=== PATIENT | female | born 1990 | race Two or more races ===

== ENCOUNTER → 2017-02-27 | Outpatient (CLI) | payer OTHER ==
[~2017-02-27] MED LIST: Z.0.NO CURRENT MEDS
== END ==
LOC: HPND 10:54
DX: O42.919 Preterm premature rupture of membranes, unspecified as to length of time between rupture and onset of labor, unspecified trimester (principal)
CPT/HCPCS: 76811; 76817

== ENCOUNTER → 2017-03-13 | Outpatient (CLI) | payer OTHER | LOC: HPND 13:06 | DX: O09.292 Supervision of pregnancy with other poor reproductive or obstetric history, second trimester (principal); O35.8XX0 Maternal care for other (suspected) fetal abnormality and damage, not applicable or unspecified | CPT/HCPCS: 76815; 76817 ==

== ENCOUNTER → 2017-03-27 | Outpatient (CLI) | payer OTHER | LOC: HPND 12:41 | DX: O09.292 Supervision of pregnancy with other poor reproductive or obstetric history, second trimester (principal); O35.8XX0 Maternal care for other (suspected) fetal abnormality and damage, not applicable or unspecified | CPT/HCPCS: 76816; 76817 ==

== ENCOUNTER → 2017-04-23 | Outpatient (CLI) | payer OTHER | LOC: HPND 12:57 | DX: O09.292 Supervision of pregnancy with other poor reproductive or obstetric history, second trimester (principal) | CPT/HCPCS: 76816 ==

== ENCOUNTER → 2017-05-25 | Outpatient (CLI) | payer OTHER | LOC: HPND 08:09 | DX: O09.213 Supervision of pregnancy with history of pre-term labor, third trimester (principal); O35.1XX0 Maternal care for (suspected) chromosomal abnormality in fetus, not applicable or unspecified | CPT/HCPCS: 76816 ==

== ENCOUNTER 2017-06-10 00:01 | Emergency (ER) | payer OTHER ==
--- NOTE | 2017-06-10 00:57 | PD ---
HPI Chief Complaint Contractions Date Seen: Jun 10, 2017 Time Seen: 00:51 Travel History International Travel<30 Days: No Contact w/Intl Traveler<30Days: No Known Affected Area: No History of Present Illness HPI 26-year-old at 35 weeks and 5 days comes in complaining of contractions for about 24 hours. Patient states that about a day and half ago she started having intermittent mild contractions have continued and she is here just to make sure that she is not in labor. Patient has had a history of a demise at 23 weeks due to premature rupture membranes with a prolapsed cord. On her last ultrasound the baby was in a transverse presentation. She sees a Dr. Lewis in [place] who delivers at the [facility] but the patient is planning on delivering here as she lives in [place]. Patient denies any complications during this . Patient is due to get her group B strep culture next week. Patient had 2 ultrasounds here due to the history of the demise and the premature rupture membranes and due to bilateral renal pyelectasis which has since resolved Para: 2 : 4 Miscarriage: 2 History Past Medical History Medical History: Denies Significant Hx Obstetric History Obstetric History Spontaneous vaginal delivery 21 was 7 pounds the other one was 8 pounds Premature rupture membranes at 23 weeks with a demise due to prolapsed cord Past Surgical History Surgical History: No Previous Surgery Family History Family History: Negative Social History Alcohol Use: No Tobacco Use: No Substance Abuse: No Allergies-Medications (Allergen,Severity, Reaction): Coded Allergies: No Known Allergies (Verified Allergy, Mild, 11/24/07) Home Meds Reported Medications Miscellaneous (No Current Meds) [facility] Ref 0 11/24/07 Miscellaneous (No Current Meds) [facility] 09/02/06 Review of Systems Except as stated in HPI: all other systems reviewed are Neg Physical Exam Narrative GENERAL: Well-nourished, well-developed patient. SKIN: Warm and dry. HEAD: Normocephalic and atraumatic. EYES: No scleral icterus. No injection or drainage. ENT: No nasal drainage noted. Mucous membranes pink. Airway patent. NECK: Supple, trachea midline. No JVD. CARDIOVASCULAR: Regular rate and rhythm without murmurs, gallops, or rubs. RESPIRATORY: Breath sounds equal bilaterally. No accessory muscle use. ABDOMEN/GI: Abdomen soft, non-tender, bowel sounds present, no rebound, no guarding Gravid to [-35] weeks size Fundal Height: [-] GENITOURINARY: External Genitalia: intact and normal in appearance BUS glands: [Normal-] Cervix: [Posterior-] Dilatation: [-Closed] Effacement: [-Long] Station: [-High] Presentation: [-Vertex] Membranes: [intact ] Uterine Contractions: [-Absent] mild palpable contractions on exam Urine dip negative for leukocytes and nitrates, protein FHT's: Category: [1-] Baseline: [-145] Reactive: [Moderate-] Variability: [Moderate-] Decels: [-Absent] EXTREMITIES: No cyanosis or edema. BACK: Nontender without obvious deformity. No CVA tenderness. NEUROLOGICAL: Awake and alert. Motor and sensory grossly within normal limits. Five out of 5 muscle strength in all muscle groups. Normal speech. Data Data Vital Signs Reviewed: Yes MDM Plan 26-year-old at 35 weeks and 5 days with irregular mild contractions not in labor Discussed with the patient either transfer of records to [facility] so we can have her labs and her group B strep or consider transfer of care to a doctor who delivers in this hospital History of demise at 23 weeks Diagnosis Diagnosis: Primary Impression: 35 weeks gestation of Additional Impressions: Irregular uterine contractions False labor before 37 completed weeks of gestation during in third trimester, antepartum Disposition: DISCHARGE HOME Zully Lerma MD Jun 10, 2017 00:57
[2017-06-10] MEDS ORDERED: OXYTOCIN 30 UNITS-500ML PREMIX 500 ML ONE (02:06)
[2017-06-12] MEDS ORDERED: PREN1TAB58 (11:30)
== END 2017-06-10 02:37 | disposition home or self-care (01) ==
LOC: HOBED 00:01
DX: O47.03 False labor before 37 completed weeks of gestation, third trimester (principal); Z3A.35 35 weeks gestation of pregnancy
CPT/HCPCS: 99283; J2590

== ENCOUNTER 2017-06-17 14:15 | Emergency (ER) | payer OTHER ==
[~2017-06-17] VITALS: Ht 152.4 cm; Wt 65.3 kg
[~2017-06-17 14:15] MED LIST changes: +PREN1TAB58; -Z.0.NO CURRENT MEDS
--- NOTE | 2017-06-17 16:02 | PD ---
HPI Chief Complaint ctx, dark spotting Travel History International Travel<30 Days: No Contact w/Intl Traveler<30Days: No Known Affected Area: No History of Present Illness HPI 26y/o , IUP at 36.5 records reviewed, PNC complicated by: FDIU at 23w, transfer of care at 35w Patient presents c/o onset of painful ctx a week ago, occurring about every 10 min. She reports the ctx worsened in intensity today. There have been no aggravating or alleviating factors and no attempted treatments. She reports she was seen in the office on Sunday for a SVE (06/12) and started having dark brown spotting on Sunday (06/13). She states her cervix was closed at that time. She reports it was just small amount with wiping. The patient reports the spotting stopped yesterday (06/16). She denies any BRB or vaginal bleeding. She reports good FM. She denies any LOF. She has no other ob complaints. Para: 2 : 4 History Past Medical History Medical History: Denies Significant Hx Obstetric History Obstetric History FDIU at 23w FT 2005, 2007 Past Surgical History Narrative Surgical Eye surgery Family History Family History: Negative Social History Alcohol Use: No Tobacco Use: No Substance Abuse: No Allergies-Medications (Allergen,Severity, Reaction): Coded Allergies: No Known Allergies (Verified , 06/17/17) Home Meds Reported Medications Vit/Iron Fumarate/FA ( Vitamin Formula Tb)1 Each Tablet 06/12/17 Review of Systems Except as stated in HPI: all other systems reviewed are Neg Physical Exam Narrative VSS AF, A&Ox3, NAD GENERAL: Well-nourished, well-developed patient. SKIN: Warm and dry. HEAD: Normocephalic and atraumatic. EYES: No scleral icterus. No injection or drainage. ENT: No nasal drainage noted. Mucous membranes pink. Airway patent. NECK: Supple, trachea midline. No JVD. CARDIOVASCULAR: Regular rate and rhythm without murmurs, gallops, or rubs. RESPIRATORY: Breath sounds equal bilaterally. No accessory muscle use. BREASTS: deferred ABDOMEN/GI: Abdomen soft, non-tender, bowel sounds present, no rebound, no guarding Gravid GENITOURINARY: External Genitalia: intact and normal in appearance BUS glands: normal Cervix: visibly normal/closed, no cervical/vaginal masses, normal rugae, physiologic d/c, no blood or dark d/c noted Dilatation: 1 Effacement: thick, multiparous Station: -3 Presentation: cephalic, posterior Membranes: [intact] Exam unchagned in 1h Uterine Contractions: [decreased with po hydration] FHT's: Category: [1] Baseline: 140s Reactive: reactive NST Variability: [moderate LTV, good accels] Decels: [no] EXTREMITIES: No cyanosis or edema. BACK: Nontender without obvious deformity. No CVA tenderness. NEUROLOGICAL: Awake and alert. Motor and sensory grossly within normal limits. Five out of 5 muscle strength in all muscle groups. Normal speech MS: grossly normal ROM, gait, muscle strength Psych: grossly normal memory, affect. Data Data Orders Hydroxyzine Pamoate (Vistaril) (06/17/17 16:00) MDM Plan A/P: 26y/o 1. IUP at 36.5 2. Threatened PTL: no evidence of PTL with cervix unchanged over observation period and patient reports ctx have decreased in intensity and frequency with po hydration. Strict PTL precautions, encourage good hydration. 3. wellbeing: reassuring testing with reactive NST. FHR reassuring and appropriate for gestational age. FKC daily. 4. h/o FDIU at 23w 5. No evidence of VB, discussed that spotting can be normal after vaginal exam, no evidence of old bleeding on exam. Bleeding precautions. 6. F/u with primary Ob in 1d as scheduled or sooner if needed 7. A+. Diagnosis Diagnosis: Primary Impression: 36 weeks gestation of Additional Impression: False labor before 37 completed weeks of gestation during in third trimester, antepartum Disposition: 01 DISCHARGE HOME Condition: Critical Patient Instructions: Movement (ED), Labor (ED) Additional Instructions: F/U with primary OB in 1d as scheduled PTL precautions, FKC daily, VB precautions Zeynep Zaragoza MD Jun 17, 2017 16:02
[2017-08-13] MEDS ORDERED: SPRI28TA PO (16:11)
== END 2017-06-17 17:55 | disposition home or self-care (01) ==
LOC: HOBED 14:15
DX: O47.03 False labor before 37 completed weeks of gestation, third trimester (principal); Z3A.36 36 weeks gestation of pregnancy
CPT/HCPCS: 59025; 99283

== ENCOUNTER 2017-06-23 11:20 | Emergency (ER) | payer OTHER ==
[2017-06-23 11:40] VITALS: TEMP 97.7
--- NOTE | 2017-06-23 12:06 | PD ---
HPI Chief Complaint conTraction pain, decreased movement .,spotting Date Seen: Jun 23, 2017 Travel History International Travel<30 Days: No Contact w/Intl Traveler<30Days: No Known Affected Area: No History of Present Illness HPI 26-year-old G 5 P4 38 weeks to [facility] presents complaining contractions, no bleeding but did note some minimal spotting, no leakage of fluid. Baby is active here on OB ED in the heart rate tracing is reactive. Patient elías every 8-10 minutes Para: 4 : 5 History Obstetric History Obstetric History 4 vaginal deliveries Social History Alcohol Use: No Tobacco Use: No Substance Abuse: No Allergies-Medications (Allergen,Severity, Reaction): Coded Allergies: No Known Allergies (Verified , 06/18/17) Home Meds Reported Medications Vit/Iron Fumarate/FA ( Vitamin Formula Tb)1 Each Tablet 06/12/17 Review of Systems General / Constitutional: No: Fever, Weight Gain, Chills, Other Eyes: No: Diploplia, Blurred Vision, Visual changes, Pain, Photophobia HENT: No: Headaches, Vertigo, Lightheadedness Cardiovascular: No: Irregular Rhythm, Chest Pain or Discomfort, Palpitations, Tachycardia, Syncope, Varicosities, Edema, Cyanosis Respiratory: No: Cough, Short of Breath, Other Gastrointestinal: Abdominal Pain, No: Nausea, Vomiting, Diarrhea Genitourinary: No: Decreased Urinary Output, Oliguria Musculoskeletal: No: Limited ROM, Weakness, Cramping, Edema, Pain Skin: No Rash, No Itching, No Dryness, No Lumps, No Change in Pigmentation, No Change in Nails, No Alopecia, No Lesions Neurologic: No: Weakness, Dizziness, Syncope, Focal Abnormalities, Coordination Problem, Headache, Slurred Speech, Seizures Psychiatric: No: Depression, Suicidal Ideations, Homicidal Ideation Endocrine: No: Heat Intolerance, Cold Intolerance, Polydipsia, Polyuria, Other Physical Exam Vital Signs Date Time Temp Pulse Resp B/P Pulse Ox O2 Delivery O2 Flow Rate FiO2 06/23/17 11:40 97.7 Narrative GENERAL: Well-nourished, well-developed patient. SKIN: Warm and dry. HEAD: Normocephalic and atraumatic. EYES: No scleral icterus. No injection or drainage. ENT: No nasal drainage noted. Mucous membranes pink. Airway patent. NECK: Supple, trachea midline. No JVD. CARDIOVASCULAR: Regular rate and rhythm without murmurs, gallops, or rubs. RESPIRATORY: Breath sounds equal bilaterally. No accessory muscle use. BREASTS: Bilateral exam showed no masses , no retractions, no nipple discharge. ABDOMEN/GI: Abdomen soft, non-tender, bowel sounds present, no rebound, no guarding Gravid to [38-] weeks size Fundal Height: [-38] GENITOURINARY: External Genitalia: intact and normal in appearance BUS glands: [-] Cervix: [-] Dilatation: [-2] Effacement: [-30] Station: [-3] Presentation: [vtx-] Membranes: [intact ] Uterine Contractions: [q 8 min-] FHT's: Category: [-1] Baseline: [-133] Reactive: [-yes] Variability: mod[-] Decels: [-none] EXTREMITIES: No cyanosis or edema. BACK: Nontender without obvious deformity. No CVA tenderness. NEUROLOGICAL: Awake and alert. Motor and sensory grossly within normal limits. Five out of 5 muscle strength in all muscle groups. Normal speech. MDM Interpretation(s) Patient 26-year-old 38 weeks and goes to [facility] presents complaining of contractions, decreased movement, and minimal spotting. No leakage of fluid or gross vaginal bleeding. Baby is active here on OB ED and heart rate tracing is reactive. She is elías every 8-10 minutes, cervix is 2 cm thick and posterior vertex Plan Plan to discharge home to return for increasing pain, or ruptured membranes, or significant vaginal bleeding. Diagnosis Diagnosis: Primary Impression: 38 weeks gestation of Additional Impression: Irregular uterine contractions Disposition: 01 DISCHARGE HOME Condition: Stable Ray Santiago II, MD Jun 23, 2017 12:06
[2017-08-13] MEDS ORDERED: SPRI28TA PO (16:11)
== END 2017-06-23 12:49 | disposition home or self-care (01) ==
LOC: HOBED 11:20
DX: O47.1 False labor at or after 37 completed weeks of gestation (principal); Z3A.38 38 weeks gestation of pregnancy
CPT/HCPCS: 59025

== ENCOUNTER 2017-06-27 10:57 | Inpatient (IN) | payer OTHER ==
[2017-06-27] VITALS (36 sets, daily range): BP systolic 89–132; BP diastolic 55–98; PULSE 50–91; RESP 18; TEMP 97.9–98.3
[~2017-06-27] VITALS: Ht 152.4 cm; Wt 64.4 kg
--- NOTE | 2017-06-27 11:27 | PD ---
HPI Chief Complaint Contractions Date Seen: Jun 27, 2017 Travel History International Travel<30 Days: No Contact w/Intl Traveler<30Days: No History of Present Illness HPI Patient is a 26 year old at 38-1/7 weeks gestation who presents today for contractions. She has been having contractions for the past 2 weeks, however last night they became more frequent. They're now occurring every 5 minutes. She has noticed more mucus discharge but denies any vaginal bleeding, gush or leaking of fluid. Positive movement. care with [facility]. History Past Medical History Medical History: Denies Significant Hx Obstetric History Obstetric History x 2 at term IUFD at 23 weeks gestation Past Surgical History Surgical History: No Previous Surgery Family History Family History: Negative Social History Alcohol Use: No Tobacco Use: No Substance Abuse: No Allergies-Medications (Allergen,Severity, Reaction): Coded Allergies: No Known Allergies (Verified , 06/26/17) Home Meds Reported Medications Vit/Iron Fumarate/FA ( Vitamin Formula Tb)1 Each Tablet 06/12/17 Review of Systems Except as stated in HPI: all other systems reviewed are Neg General / Constitutional: No: Fever, Chills Eyes: No: Blurred Vision, Visual changes HENT: No: Headaches Cardiovascular: No: Chest Pain or Discomfort Respiratory: No: Short of Breath Gastrointestinal: No: Nausea, Vomiting Genitourinary: Pelvic Pain, Discharge, No: Dysuria, Vaginal Bleeding Musculoskeletal: No: Edema Neurologic: No: Headache Psychiatric: No: Substance Abuse Physical Exam Narrative GENERAL: Well-nourished, well-developed patient. SKIN: Warm and dry. HEAD: Normocephalic and atraumatic. EYES: No scleral icterus. No injection or drainage. ENT: No nasal drainage noted. Mucous membranes pink. Airway patent. NECK: Supple, trachea midline. No JVD. CARDIOVASCULAR: Regular rate and rhythm without murmurs, gallops, or rubs. RESPIRATORY: Breath sounds equal bilaterally. No accessory muscle use. ABDOMEN/GI: Abdomen soft, non-tender, bowel sounds present, no rebound, no guarding Gravid to 38 weeks size GENITOURINARY: External Genitalia: intact and normal in appearance BUS glands: normal Cervix: posterior Dilatation: 2-3 Effacement: 30 Station: -2 Presentation: vertex Membranes: intact Uterine Contractions: irregular FHT's: Category: I Baseline: 135 Reactive: + Variability: moderate Decels: none EXTREMITIES: No cyanosis or edema. BACK: Nontender without obvious deformity. No CVA tenderness. NEUROLOGICAL: Awake and alert. Motor and sensory grossly within normal limits. Normal speech. Data Data Vital Signs Reviewed: Yes MDM Medical Record Reviewed: Yes Narrative Course / MDM 26 year old at 38-1/7 weeks gestation. 1. IUP- Category I tracing, reassuring. 2. Contractions- q2-3 minutes. Will have patient ambulate around the floor and monitor for cervical change. Declines pain medication. sdw Lucy Beckford MD, R3 Jun 27, 2017 11:27 False labor Additional Impression: 38 weeks gestation of Disposition: DISCHARGE HOME Condition: Stable Lucy Del Rosario MD, R3 Jun 27, 2017 11:27
[2017-06-27] MEDS ORDERED: LACTATED RINGER'S 1000 ML INJ 1,000 ML IV SCH (14:02)
[2017-06-27] MEDS ORDERED: LACTATED RINGER'S 1000 ML INJ 1,000 ML IV PRN (14:02)
--- NOTE | 2017-06-27 14:10 | HHI.HP ---
History & Physical H&P HPI Chief Complaint Contractions Date Seen: Jun 27, 2017 Travel History International Travel<30 Days: No Contact w/Intl Traveler<30Days: No History of Present Illness HPI Patient is a 26 year old at 38-1/7 weeks gestation who presents today for contractions. She has been having contractions for the past 2 weeks, however last night they became more frequent. They're now occurring every 5 minutes. She has noticed more mucus discharge but denies any vaginal bleeding, gush or leaking of fluid. Positive movement. care with [facility]. History Past Medical History Medical History: Denies Significant Hx Obstetric History Obstetric History x 2 at term IUFD at 23 weeks gestation Past Surgical History Surgical History: No Previous Surgery Family History Family History: Negative Social History Alcohol Use: No Tobacco Use: No Substance Abuse: No Allergies-Medications (Allergen,Severity, Reaction): Coded Allergies: No Known Allergies (Verified , 06/26/17) Home Meds Reported Medications Vit/Iron Fumarate/FA ( Vitamin Formula Tb)1 Each Tablet 06/12/17 Review of Systems Except as stated in HPI: all other systems reviewed are Neg General / Constitutional: No: Fever, Chills Eyes: No: Blurred Vision, Visual changes HENT: No: Headaches Cardiovascular: No: Chest Pain or Discomfort Respiratory: No: Short of Breath Gastrointestinal: No: Nausea, Vomiting Genitourinary: Pelvic Pain, Discharge, No: Dysuria, Vaginal Bleeding Musculoskeletal: No: Edema Neurologic: No: Headache Psychiatric: No: Substance Abuse Physical Exam Narrative GENERAL: Well-nourished, well-developed patient. SKIN: Warm and dry. HEAD: Normocephalic and atraumatic. EYES: No scleral icterus. No injection or drainage. ENT: No nasal drainage noted. Mucous membranes pink. Airway patent. NECK: Supple, trachea midline. No JVD. CARDIOVASCULAR: Regular rate and rhythm without murmurs, gallops, or rubs. RESPIRATORY: Breath sounds equal bilaterally. No accessory muscle use. ABDOMEN/GI: Abdomen soft, non-tender, bowel sounds present, no rebound, no guarding Gravid to 38 weeks size GENITOURINARY: External Genitalia: intact and normal in appearance BUS glands: normal Cervix: posterior Dilatation: 2-3 Effacement: 30 Station: -2 Presentation: vertex Membranes: intact Uterine Contractions: irregular FHT's: Category: I Baseline: 135 Reactive: + Variability: moderate Decels: none EXTREMITIES: No cyanosis or edema. BACK: Nontender without obvious deformity. No CVA tenderness. NEUROLOGICAL: Awake and alert. Motor and sensory grossly within normal limits. Normal speech. Data Data Vital Signs Reviewed: Yes MDM Medical Record Reviewed: Yes Narrative Course / MDM 26 year old at 38-1/7 weeks gestation. 1. IUP- Category I tracing, reassuring. 2. Regular contractions- admit for labor 3. GBS negative. sdw Lucy Beckford MD, R3 Jun 27, 2017 14:10
[2017-06-27] MEDS ORDERED: LIDOCAINE HCL 1% 50 ML VIAL I-DERMAL PRN (14:15)
[2017-06-27] MEDS ORDERED: LIDOCAINE HCL 1% 50 ML VIAL INFIL PRN (14:15)
[2017-06-27] MEDS ORDERED: CITRIC ACID-SODIUM CITRATE LIQ 30 ML UDC PO SCH (14:15)
[2017-06-27] MEDS ORDERED: ONDANSETRON HCL 4 MG/2 ML VIAL IV PRN (14:15)
[2017-06-27] MEDS ORDERED: SODIUM CHLORID 0.9% 500 ML INJ 500 ML IV PRN (14:15)
[2017-06-27] MEDS ORDERED: MINERAL OIL 10 ML VIAL TOPICAL PRN (14:15)
[2017-06-27] MEDS ORDERED: OXYTOCIN 30 UNITS-500ML PREMIX 500 ML IV ONE (14:15)
[2017-06-27] MEDS ORDERED: SODIUM CHLOR 0.9% 1000 ML INJ 1,000 ML IV PRN (14:22)
[2017-06-27 15:32] LABS: BASOPHIL % 0.4 % (0.0-2.0); EOSINOPHIL % 0.5 % (0.0-4.0); HEMATOCRIT 36.5 % (35.0-46.0); HEMO FLAGS DIFF FINAL; LYMPHOCYTE # 1.6 TH/MM3 (1.0-4.8); MEAN CELL VOLUME 88.9 FL (80.0-100.0); MEAN CORPUSCULAR HEMOGLOBIN 30.3 PG (27.0-34.0); MEAN CORPUSCULAR HGB CONC 34.1 % (32.0-36.0); MONO % 5.9 % (0.0-8.0); NEUT % 76.2 % (16.0-70.0); PLATELET COUNT 156 TH/MM3 (150-450); RED CELL DISTRIBUTION WIDTH 14.5 % (11.6-17.2); WHITE BLOOD COUNT 9.2 TH/MM3 (4.0-11.0)
[2017-06-27 16:00] LABS: BACTERIA, URINE RARE /hpf; BLOOD, URINE TRACE (NEG); CALCIUM OXALATE CRYSTALS,URINE OCC /hpf; COMMENT (UR) CULT NOT INDICATED; CULTURE IF INDICATED CULT NOT INDICATED; GLUCOSE,URINE NEG (NEG); KETONE, URINE NEG (NEG); MUCUS URINE FEW /lpf (OCC); NITRITE,URINE NEG (NEG); SQUAMOUS EPITHELIAL CELL URINE 11 /hpf (0-5); URINE COLOR YELLOW (YELLW/STRAW)
[2017-06-27] MEDS ORDERED: OXYTOCIN 30 UNITS-500ML PREMIX 500 ML IV SCH (22:15)
[2017-06-28] VITALS (24 sets, daily range): BP systolic 100–150; BP diastolic 53–82; PULSE 54–78; RESP 16–18; TEMP 97.9–98.2; O2SAT 100
[2017-06-28] MEDS ORDERED: WITCH HAZEL 50%/GLYCERIN 12.5% 40 PAD JAR TOPICAL PRN (03:15)
[2017-06-28] MEDS ORDERED: SODIUM CHLORIDE 0.9% FLUSH 10 ML FLUSH IV FLUSH PRN (03:15)
[2017-06-28] MEDS ORDERED: ALUMINUM/MAGNESIUM/SIMETH 30 ML CUP PO PRN (03:15)
[2017-06-28] MEDS ORDERED: ONDANSETRON ODT 4 MG TAB PO PRN (03:15)
[2017-06-28] MEDS ORDERED: oxyCODONE/ACETAMINOPHEN 5 MG/325 MG TAB PO PRN (03:15)
[2017-06-28] MEDS ORDERED: ZOLPIDEM TARTRATE 5 MG TAB PO PRN (03:15)
[2017-06-28] MEDS ORDERED: BENZOCAINE 20% TOPICAL SPRAY 60 ML CAN TOPICAL PRN (03:15)
[2017-06-28] MEDS ORDERED: OXYTOCIN 30 UNITS-500ML PREMIX 500 ML IV SCH (03:15)
--- NOTE | 2017-06-28 03:17 | PD.OB.DELI ---
Delivery Date: Jun 28, 2017 Anesthesia: None Episiotomy: None Vaginal Delivery: Normal Presentation: Occiput anterior Nuchal Cord: None Delayed cord clamping (45 sec): No Infant: Female One Minute : 9 Five Minute : 9 Weight: 3115 Placenta: Spontaneous delivery Laceration: No lacerations Additional Information Time of delivery 0305 No lacerations Assisted by Víctor Butterfield MD, R3 Jun 28, 2017 03:17
[2017-06-28] MEDS ORDERED: SODIUM CHLORIDE 0.9% FLUSH 10 ML FLUSH IV FLUSH SCH (09:00)
--- NOTE | 2017-06-28 10:26 | HHI.OB ---
Subjective Post Day: 0 Remarks day # 0 AFVSS overnight. Decreased lochia. Denies dysuria. No breast tenderness. She is feeding the baby via bottle. Appetite good. No nausea or vomiting. Ambulating well. Denies calf pain or shortness of breath. Otherwise, she is doing well this morning and has no other complaints. Objective Vitals/I&O Vital Signs Date Time Temp Pulse Resp B/P Pulse Ox O2 Delivery O2 Flow Rate FiO2 06/28/17 08:00 60 16 102/60 06/28/17 08:00 98.0 06/28/17 04:38 18 06/28/17 04:30 54 107/55 06/28/17 04:15 56 103/57 06/28/17 04:01 18 06/28/17 04:00 55 115/69 06/28/17 03:59 18 06/28/17 03:45 59 105/62 06/28/17 03:45 18 06/28/17 03:31 66 105/61 06/28/17 03:30 18 06/28/17 03:19 76 150/70 06/28/17 03:15 98.2 06/28/17 03:15 18 06/28/17 03:02 74 122/78 06/28/17 02:31 71 135/82 06/28/17 02:01 61 125/65 06/28/17 01:45 18 06/28/17 01:31 73 137/72 06/28/17 01:15 18 06/28/17 01:00 54 137/77 06/28/17 00:45 18 06/28/17 00:31 78 100/53 06/28/17 00:15 18 06/28/17 00:15 18 06/28/17 00:00 70 108/72 06/28/17 00:00 70 108/72 06/27/17 23:30 60 101/68 06/27/17 23:15 97.9 18 06/27/17 23:00 60 89/55 06/27/17 22:45 18 06/27/17 22:30 74 111/68 06/27/17 22:23 63 111/66 06/27/17 20:07 18 06/27/17 20:07 97.9 06/27/17 20:04 61 129/81 06/27/17 18:30 98.3 18 06/27/17 18:30 58 123/83 06/27/17 17:11 50 132/71 06/27/17 17:10 18 06/27/17 17:05 65 06/27/17 17:00 64 06/27/17 16:55 62 06/27/17 16:50 75 06/27/17 16:45 55 06/27/17 16:40 62 06/27/17 16:35 64 06/27/17 16:30 68 06/27/17 16:25 68 06/27/17 16:21 63 113/70 06/27/17 16:20 81 113/98 06/27/17 16:20 63 06/27/17 16:19 18 06/27/17 16:05 82 06/27/17 16:00 82 06/27/17 15:55 67 06/27/17 15:50 77 06/27/17 15:45 72 06/27/17 15:40 91 06/27/17 15:35 64 06/27/17 15:28 62 105/58 06/27/17 15:27 18 06/27/17 14:30 98.1 06/27/17 14:20 18 06/27/17 14:15 62 110/75 06/27/17 11:11 64 115/79 Objective Remarks GENERAL: Well-nourished, well-developed patient. CARDIOVASCULAR: Regular rate and rhythm without murmurs, gallops, or rubs. RESPIRATORY: Breath sounds equal bilaterally. No accessory muscle use. ABDOMEN/GI: Abdomen soft, non-tender. Fundus: Firm, non-tender at umbilicus. GENITOURINARY: Light to moderate bleeding. EXTREMITIES: No cyanosis or edema, non-tender, without signs of DVT. Medications and IVs Current Medications Medications (Trade) Dose Ordered Sig/Charles Route Start Time Stop Time Status Last Admin (Pitocin 30 Units-NS 500 ml Premix) 500 ml @ 0 mls/hr TITRATE IV 06/27/17 22:15 (NS Flush) 2 ml BID IV FLUSH 06/28/17 09:00 (NS Flush) 2 ml UNSCH PRN IV FLUSH 06/28/17 03:15 (Tylenol) 650 mg Q4H PRN PO 06/28/17 03:15 (Motrin) 600 mg Q6H PRN PO 06/28/17 03:15 (Percocet 5-325 Mg) 1 tab Q4H PRN PO 06/28/17 03:15 (Percocet 5-325 Mg) 2 tab Q4H PRN PO 06/28/17 03:15 (Americaine 20% Top Spr) 1 spray Q4H PRN TOPICAL 06/28/17 03:15 (Tucks Pads) 1 applic QID PRN TOPICAL 06/28/17 03:15 (Rina-Colace) 2 tab Q12H PRN PO 06/28/17 03:15 (Ambien) 5 mg HS PRN PO 06/28/17 03:15 (M-M-R Ii Inj) 0.5 ml ONCE ONCE SQ 06/28/17 16:00 06/28/17 16:01 (Boostrix Inj) 0.5 ml ONCE ONCE IM 06/28/17 16:00 06/28/17 16:01 (Mag-Al Plus Susp Liq) 15 ml Q8H PRN PO 06/28/17 03:15 (Zofran Odt) 4 mg Q6H PRN PO 06/28/17 03:15 Assessment/Plan Assessment and Plan 26 y/o female who is PPD# 0 s/p . -Continue routine care. -Motrin PRN pain. -Encouraged OOB. Advised pelvic rest for 6 wks. -Re: ctrl, she would like control pills. -D/c in 1-2 more days. lara Santiago, Marlon Hugo MD R1 Jun 28, 2017 10:26
[2017-06-28] MEDS: DOCUSATE SODIUM 50 MG/SENNA 8.6 MG TAB PO PRN (12:12)
[2017-06-28] MEDS: oxyCODONE/ACETAMINOPHEN 5 MG/325 MG TAB PO PRN ×2 (12:12→17:38)
[2017-06-28] MEDS: IBUPROFEN 600 MG TAB PO PRN ×2 (12:12→17:38)
[2017-06-28] MEDS ORDERED: DIPHTH/TETANUS/ACEL PERTUSSIS (BOOSTER) 0.5 ML VIAL/PFS IM ONE (16:00)
[2017-06-28] MEDS ORDERED: MEASLES, MUMPS, RUBELLA VACCINE 0.5 ML VIAL SQ ONE (16:00)
[2017-06-29 07:50] VITALS: BP 104/61; PULSE 57; RESP 16; TEMP 98.6
[2017-06-29] MEDS: IBUPROFEN 600 MG TAB PO PRN ×2 (07:55→15:20)
[2017-06-29] MEDS: DOCUSATE SODIUM 50 MG/SENNA 8.6 MG TAB PO PRN (07:56)
[2017-06-29] MEDS: ACETAMINOPHEN 325 MG TAB PO PRN ×2 (07:56→15:20)
--- NOTE | 2017-06-29 08:45 | HHI.OB ---
Subjective Post Day: 1 Remarks day # 1 AFVSS overnight. Decreased lochia. Denies dysuria. No breast tenderness. She is feeding the baby via bottle. Appetite good. No nausea or vomiting. Ambulating well. Denies calf pain or shortness of breath. Otherwise, she is doing well this morning and has no other complaints. Objective Vitals/I&O Vital Signs Date Time Temp Pulse Resp B/P Pulse Ox O2 Delivery O2 Flow Rate FiO2 06/28/17 19:14 103/60 06/28/17 19:14 97.9 61 16 100 Objective Remarks GENERAL: Well-nourished, well-developed patient. CARDIOVASCULAR: Regular rate and rhythm without murmurs, gallops, or rubs. RESPIRATORY: Breath sounds equal bilaterally. No accessory muscle use. ABDOMEN/GI: Abdomen soft, non-tender. Fundus: Firm, non-tender at umbilicus. GENITOURINARY: Light to moderate bleeding. EXTREMITIES: No cyanosis or edema, non-tender, without signs of DVT. Medications and IVs Current Medications Medications (Trade) Dose Ordered Sig/Charles Route Start Time Stop Time Status Last Admin (Pitocin 30 Units-NS 500 ml Premix) 500 ml @ 0 mls/hr TITRATE IV 06/27/17 22:15 (NS Flush) 2 ml BID IV FLUSH 06/28/17 09:00 (NS Flush) 2 ml UNSCH PRN IV FLUSH 06/28/17 03:15 (Tylenol) 650 mg Q4H PRN PO 06/28/17 03:15 06/29/17 07:56 (Motrin) 600 mg Q6H PRN PO 06/28/17 03:15 06/29/17 07:55 (Percocet 5-325 Mg) 1 tab Q4H PRN PO 06/28/17 03:15 06/28/17 17:38 (Percocet 5-325 Mg) 2 tab Q4H PRN PO 06/28/17 03:15 (Americaine 20% Top Spr) 1 spray Q4H PRN TOPICAL 06/28/17 03:15 (Tucks Pads) 1 applic QID PRN TOPICAL 06/28/17 03:15 (Rina-Colace) 2 tab Q12H PRN PO 06/28/17 03:15 06/29/17 07:56 (Ambien) 5 mg HS PRN PO 06/28/17 03:15 (Mag-Al Plus Susp Liq) 15 ml Q8H PRN PO 06/28/17 03:15 (Zofran Odt) 4 mg Q6H PRN PO 06/28/17 03:15 Assessment/Plan Assessment and Plan 26 y/o female who is PPD# 1 s/p . -Continue routine care. -Motrin PRN pain. -Encouraged OOB. Advised pelvic rest for 6 wks. -Re: ctrl, currently unsure, wishes to think about it and follow up with her outpatient provider. -D/c Today or tomorrow. dw Dr. Santiago, Marlon Hugo MD R1 Jun 29, 2017 08:45
[2017-06-29] MEDS ORDERED: PERI8.6T PO (13:54)
[2017-06-29] MEDS ORDERED: IBUP-232 PO (13:54)
--- NOTE | 2017-06-29 13:54 | HHI.DCPOC ---
Discharge Care Plan Report Symptoms to Your Doctor -Temperature above 100.5 degrees -Redness, of incision or excessive or foul smelling drainage -Unusual pain or calf pain -Increased vaginal bleeding -Painful or difficulty urinating -Feelings of extreme sadness or anxiety after 2 weeks Goals to Promote Your Health * To prevent worsening of your condition and complications * To maintain your health at the optimal level Directions to Meet Your Goals Take your medications as prescribed Follow your dietary instruction Follow activity as directed Ensure plenty of rest for recovery Drink fluids for hydration Keep your appointments as scheduled Take your immunizations and boosters as scheduled If your symptoms worsen call your PCP, if no PCP go to Urgent Care Center or Emergency Room Smoking is Dangerous to Your Health. Avoid second hand smoke Call the 24-hour crisis hotline for domestic abuse at Marlon Suero MD R1 Jun 29, 2017 13:54
[2017-08-13] MEDS ORDERED: SPRI28TA PO (16:11)
== END 2017-06-29 17:57 | disposition home or self-care (01) | DRG 775 ==
LOC: HOBED 10:57 → H2EA 14:08 → H1EA 06-28 05:13
PROVIDERS: ADMIT Obstetrics & Gynecology Maternal & Fetal Medicine; ATTEND Obstetrics & Gynecology Maternal & Fetal Medicine
PROC: 10E0XZZ Delivery of Products of Conception, External Approach (ICD-10-PCS; principal; 2017-06-28)
DX: O80 Encounter for full-term uncomplicated delivery (principal); Z37.0 Single live birth; Z3A.38 38 weeks gestation of pregnancy
CPT/HCPCS: 59025; 81001; 85025; 86900; 86901; 90715; J7120